=== PATIENT | male | born 1945 | race African-American/Black ===

== ENCOUNTER 2022-09-01 20:08 | Emergency (ER) | payer OTHER ==
[~2022-09-01] VITALS: Ht 182.9 cm; Wt 113.0 kg
[2022-09-01 20:13] VITALS: BP 162/90
[2022-09-01] MEDS ORDERED: CYCL10TA21 MT (20:39)
== END 2022-09-01 21:19 | disposition home or self-care (01) ==
LOC: ER 20:08
DX: Z00.00 Encounter for general adult medical examination without abnormal findings (principal); Z68.33 Body mass index [BMI] 33.0-33.9, adult
CPT/HCPCS: 99283

== ENCOUNTER 2024-01-17 21:38 | Emergency (ER) | payer OTHER ==
[~2024-01-17] VITALS: Ht 182.9 cm; Wt 116.0 kg
[~2024-01-17 21:38] MED LIST: CYCL10TA21 MT
[2024-01-17 21:46] VITALS: TEMP 98.4; O2SAT 98
[2024-01-17 23:31] LABS: HEMATOCRIT. 44.3 % (42.0-52.0); HEMOGLOBIN. 14.8 g/dL (14.0-18.0); MEAN CORPUSCULAR HEMOGLOBIN 29.2 pg (28.0-32.0); MEAN CORPUSCULAR HGB CONC 33.4 g/dL (31.0-37.0); MEAN CORPUSCULAR VOLUME 87.6 fL (80.0-94.0); MEAN PLATELET VOLUME 7.8 fl (7.4-10.4); PLATELET 234 x1000/uL (130-400); RED BLOOD CELL COUNT 5.06 mill/uL (4.7-6.1); RED CELL DISTRIBUTION WIDTH 13.8 % (11.6-14.6); WHITE BLOOD COUNT 12.4 x1000/uL (4.5-11.0)
[2024-01-17 23:43] LABS: PARTIAL THROMBOPLASTIN TIME 25.6 sec (23.4-31.0); PROTHROMBIN TIME 11.4 sec (9.6-11.0)
[2024-01-17 23:44] LABS: CHLORIDE 106 mEq/L (98-107); POTASSIUM 3.9 mEq/L (3.5-5.1); SODIUM 139 mEq/L (136-145)
[2024-01-17 23:45] LABS: CALCIUM 9.8 mg/dL (8.7-10.4); CARBON DIOXIDE 23 mEq/L (21-32); DIFFERENTIAL COMMENT 1
[2024-01-17 23:50] LABS: CREATININE 0.9 mg/dL (0.6-1.3); GLUCOSE 135 mg/dL (70-105); UREA NITROGEN BLOOD 6 mg/dL (9-23)
[2024-01-17 23:51] LABS: TROPONIN I HIGH SENSITIVITY 18 ng/L (3.0-53)
[2024-01-17 23:53] LABS: ETHANOL BLOOD < 10 mg/dL (<10)
[2024-01-18 03:48] VITALS: BP 154/75; PULSE 84; RESP 16
[2024-01-18 09:57] LABS: PLATELET ESTIMATE NORMAL
== END 2024-01-18 04:40 | disposition short-term general hospital (02) ==
LOC: ER 21:38
DX: R53.1 Weakness (principal); I10 Essential (primary) hypertension; G31.89 Other specified degenerative diseases of nervous system
CPT/HCPCS: 36415; 71045; 80048; 80320; 83880; 84484; 85025; 93005; 99285; G0480

== ENCOUNTER 2024-06-18 20:53 | Emergency (ER) | payer OTHER ==
[~2024-06-18] VITALS: Ht 180.3 cm; Wt 95.0 kg
[2024-06-18 20:57] VITALS: O2SAT 99
[2024-06-18 22:29] LABS: ADD RBC MORPHOLOGY YES; BASOPHILS % 0.5 % (0.0-2.0); DIFFERENTIAL COMMENT 1; EOSINOPHILS % 4.9 % (0.0-5.0); HEMATOCRIT. 37.7 % (42.0-52.0); HEMOGLOBIN. 12.5 g/dL (14.0-18.0); LYMPHOCYTES % 22.4 % (20.0-50.0); MEAN CORPUSCULAR HEMOGLOBIN 28.4 pg (28.0-32.0); MEAN CORPUSCULAR HGB CONC 33.3 g/dL (31.0-37.0); MEAN CORPUSCULAR VOLUME 85.4 fL (80.0-94.0); NEUTROPHILS % 65.2 % (40.0-76.0); RED BLOOD CELL COUNT 4.41 mill/uL (4.7-6.1); RED CELL DISTRIBUTION WIDTH 14.4 % (11.6-14.6); WHITE BLOOD COUNT 11.6 x1000/uL (4.5-11.0)
[2024-06-18 22:36] LABS: CHLORIDE 105 mEq/L (98-107); POTASSIUM 4.3 mEq/L (3.5-5.1); SODIUM 141 mEq/L (136-145)
[2024-06-18 22:38] LABS: CALCIUM 9.7 mg/dL (8.7-10.4); CARBON DIOXIDE 31 mEq/L (21-32)
[2024-06-18 22:43] LABS: GLUCOSE 125 mg/dL (70-105); MEAN PLATELET VOLUME 8.3 fl (7.4-10.4); PLATELET 186 x1000/uL (130-400); PLATELET ESTIMATE NORMAL; UREA NITROGEN BLOOD 13 mg/dL (9-23)
[2024-06-18 22:44] LABS: TROPONIN I HIGH SENSITIVITY 5 ng/L (3.0-53)
[2024-06-18 22:45] LABS: INR 1.1; PARTIAL THROMBOPLASTIN TIME 24.3 sec (23.4-31.0); PROTHROMBIN TIME 11.9 sec (9.6-11.0)
[2024-06-18] MEDS: SODIUM CHLORIDE 0.9% 1,000 ML IV ONE (22:49)
[2024-06-18 23:52] LABS: TROPONIN I HIGH SENSITIVITY 4 ng/L (3.0-53)
[2024-06-19] MEDS: CEFTRIAXONE 1GM/50ML 50 ML IV ONE (00:55)
[2024-06-19] MEDS: AZITHROMYCIN 500MG/250ML 250 ML IV SCH (01:50)
[2024-06-19] MEDS ORDERED: ACETAMINOPHEN 325MG TABLET PO PRN ×2 (02:00)
[2024-06-19] MEDS ORDERED: CLONIDINE 0.1MG TABLET PO PRN (02:00)
[2024-06-19] MEDS ORDERED: MAGNESIUM/ALUMINUM HYDROXIDE/SIMETHICONE 30ML UDC PO PRN (02:00)
[2024-06-19] MEDS ORDERED: GUAIFENESIN 200MG/10ML SUGAR FREE UDC PO PRN (02:00)
[2024-06-19] MEDS ORDERED: ONDANSETRON HCL 4MG/2ML INJ IV PRN (02:00)
[2024-06-19] MEDS ORDERED: IPRATROPIUM/ALBUTEROL 0.5-3(2.5)MG/3ML NEB HHN PRN (02:00)
[2024-06-19] MEDS ORDERED: DOCUSATE SODIUM 100MG CAPSULE PO PRN (02:00)
[2024-06-19 04:39] LABS: BASOPHILS % 0.4 % (0.0-2.0); EOSINOPHILS % 3.9 % (0.0-5.0); HEMATOCRIT. 38.3 % (42.0-52.0); HEMOGLOBIN. 12.8 g/dL (14.0-18.0); LYMPHOCYTES % 21.4 % (20.0-50.0); MEAN CORPUSCULAR HEMOGLOBIN 28.8 pg (28.0-32.0); MEAN CORPUSCULAR HGB CONC 33.4 g/dL (31.0-37.0); MEAN CORPUSCULAR VOLUME 86.3 fL (80.0-94.0); MEAN PLATELET VOLUME 8.1 fl (7.4-10.4); NEUTROPHILS % 65.3 % (40.0-76.0); PLATELET 175 x1000/uL (130-400); RED BLOOD CELL COUNT 4.43 mill/uL (4.7-6.1); RED CELL DISTRIBUTION WIDTH 14.2 % (11.6-14.6); WHITE BLOOD COUNT 7.6 x1000/uL (4.5-11.0)
[2024-06-19 04:45] LABS: CARBON DIOXIDE 30 mEq/L (21-32); CHLORIDE 109 mEq/L (98-107); POTASSIUM 3.9 mEq/L (3.5-5.1); SODIUM 142 mEq/L (136-145)
[2024-06-19 04:46] LABS: CALCIUM 9.3 mg/dL (8.7-10.4)
[2024-06-19 04:50] LABS: IRON 37 ug/dL (65-175)
[2024-06-19 04:51] LABS: GLUCOSE 108 mg/dL (70-105); TRIGLYCERIDE 49 mg/dL (0-150); UREA NITROGEN BLOOD 13 mg/dL (9-23)
[2024-06-19 04:52] LABS: ALBUMIN 3.9 g/dL (3.2-4.8); LDL CHOLESTEROL 45 mg/dL (5-100)
[2024-06-19 04:53] LABS: CHOLESTEROL 101 mg/dL (<200); HDL CHOLESTEROL 40 mg/dL (>55); PHOSPHORUS 3.2 mg/dL (2.5-4.9); TOTAL IRON BINDING CAPACITY 270 ug/dl (250-425)
[2024-06-19 04:55] LABS: T4 FREE 1.28 ng/dL (0.89-1.76); THYROID STIMULATING HORMONE 1.32 uIU/mL (0.55-4.78)
[2024-06-19 04:56] LABS: FERRITIN 111 ng/mL (22-322)
[2024-06-19 04:57] LABS: FOLIC ACID (FOLATE) SERUM 10.63 ng/mL (>5.38); VITAMIN B12 SERUM 945 pg/mL (211-911)
[2024-06-19 06:23] LABS: CLARITY URINE CLEAR (CLEAR); COLOR URINE YELLOW (YELLOW); GLUCOSE URINE NEGATIVE (NEGATIVE); KETONES URINE NEGATIVE (NEGATIVE); LEUKOCYTE ESTERASE URINE 2+ (NEGATIVE); NITRITE URINE POSITIVE (NEGATIVE); OCCULT BLOOD URINE NEGATIVE (NEGATIVE); PROTEIN URINE TRACE (NEGATIVE); SPECIFIC GRAVITY URINE 1.014 (1.005-1.030); UROBILINOGEN URINE 0.2 E.U./dL (0.2-1.0)
[2024-06-19 06:29] LABS: *AMPHETAMINES SCREEN URINE NEGATIVE (NEGATIVE)
[2024-06-19 06:31] LABS: *BARBITURATES SCREEN URINE NEGATIVE (NEGATIVE); *BENZODIAZEPINES SCREEN URINE NEGATIVE (NEGATIVE); *COCAINE SCREEN URINE NEGATIVE (NEGATIVE); CANNABINOID URINE SCREEN NEGATIVE (NEGATIVE); ECSTASY MDMA SCREEN URINE NEGATIVE (NEGATIVE); METHADONE URINE SCREEN NEGATIVE (NEGATIVE); OPIATES URINE SCREEN NEGATIVE (NEGATIVE); PHENCYCLIDINE URINE SCREEN NEGATIVE (NEGATIVE)
[2024-06-19 07:39] LABS: BACTERIA URINE 2+; RBC URINE 0-2 /hpf (0-2); SQUAMOUS EPITHELIAL CELL URINE NONE SEEN /lpf (RARE/1+)
[2024-06-19] MEDS ORDERED: PANTOPRAZOLE SODIUM 40 MG/VIAL IV SCH (09:00)
[2024-06-19 09:36] VITALS: BP 134/86; PULSE 72; RESP 18; TEMP 36.61404; O2SAT 98
[2024-06-19] MEDS ORDERED: CEFTRIAXONE 1GM/50ML 50 ML IV SCH (21:00)
[2024-06-19] MEDS ORDERED: AZITHROMYCIN 500MG/250ML 250 ML IV SCH (22:00)
== END 2024-06-19 09:46 | disposition left against medical advice (07) ==
LOC: ER 20:53
DX: R55 Syncope and collapse (principal); E78.5 Hyperlipidemia, unspecified; E11.9 Type 2 diabetes mellitus without complications; D50.9 Iron deficiency anemia, unspecified
CPT/HCPCS: 99291; 70450; 71045; 96361; 80048 ×2; 83880; 83605; 85025 ×2; 85610; 85730; 87040; 84484; 36415 ×2; 72170; 93005; 96365; 80061; 80305; 82040; 82607; 82728; 82746; 83036; 84439; 83540; 83550; 83735; 84100; 84443; 84145; 96368; 81003; J7030; J0456; J0696